=== PATIENT | female | born 1990 | race Caucasian/White ===

== ENCOUNTER 2024-08-07 14:13 | Emergency (ER) | payer OTHER, MEDICAID, SELFPAY ==
[2024-08-07 14:15] VITALS: BP 142/81; PULSE 92; RESP 16; TEMP 36.8; O2SAT 100; BMI 37.4
--- NOTE | 2024-08-07 14:36 | ED_ITS ---
HPI - Eye Problem <WYATT Jackson - Last Filed: 08/07/24 14:41> General Chief complaint: Eye Problems Stated complaint: Facial Swelling Time Seen by Provider: 08/07/24 14:22 Source: patient Mode of arrival: Ambulatory History of Present Illness HPI Narrative: 34-year-old female, daily smoker, presents to the emergency department with complaints of right upper eyelid swelling x1 day. Patient reports that she had a pimple on her right eyebrow that she popped last evening that became infected causing swelling of her upper eyelid. Patient denies any visual changes or eye discharge. 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 Related Data Previous Rx's Medication Instructions Recorded amoxicillin 875 mg-potassium 1 tab PO BID 7 days #14 tabs 08/07/24 clavulanate 125 mg tablet fluconazole 150 mg tablet 150 mg PO Q3D 2 doses #2 tabs 08/07/24 mupirocin 2 % topical ointment 1 applic topical BID #22 grams 08/07/24 sulfamethoxazole 800 1 tab PO BID 7 days #14 tabs 08/07/24 mg-trimethoprim 160 mg tablet (Bactrim DS) Allergies Allergy/AdvReac Type Severity Reaction Status Date / Time No Known Drug Allergies Allergy Verified 08/07/24 14:15 Review of Systems <WYATT Jackson - Last Filed: 08/07/24 14:41> Review of Systems Narrative: Narrative: See HPI. GENERAL: Denies chills, fatigue, fever, sweats. HEENT: Denies sinus pain, ear pain, sore throat, difficulty swallowing, dizziness. Endorses right upper eyelid swelling and discomfort. RESPIRATORY: Denies dyspnea, cough, wheezing, sputum. CARDIOVASCULAR: Denies chest pain, palpitations, edema. GASTROINTESTINAL: Denies nausea, vomiting, abdominal pain, diarrhea, constipation. MSK: Denies weakness, joint pain, or bony pain. SKIN: Denies rash, skin lesions, or pruritis. NEUROLOGIC: Denies weakness, dizziness, headache, numbness, confusion. Patient History <WYATT Jackson - Last Filed: 08/07/24 14:41> Social History Smoking Status: Current every day smoker Smoking Status: Current every day smoker tobacco type: vaping alcohol intake frequency: holidays/special occasions only Substance Use Type: methamphetamine Exam <WYATT Jackson - Last Filed: 08/07/24 14:41> Narrative Exam Narrative: Exam Narrative: GENERAL: This is a well-nourished, well-developed patient, in no acute distress. HEAD: Atraumatic. Normocephalic. EYES: Pupils equal round and reactive. Extraocular motions intact. No scleral icterus, injection or drainage. Positive swelling of right upper eyelid consistent with preseptal cellulitis. ENT: Nose without bleeding, purulent drainage. Airway patent. NECK: Trachea midline. No JVD or lymphadenopathy. Nontender. CARDIOVASCULAR: Regular rate and rhythm without murmurs, peripheral pulses intact, cap refill <2 sec. RESPIRATORY: Breath sounds equal and clear bilaterally. No wheezes, rales, or rhonchi. No cough. No increased respiratory effort. No accessory muscle use. MSK: Moves all extremities. Normal range of motion, no clubbing or edema. Neurovascularly intact. NEURO: A&O x 3. SKIN: Warm, dry, no rashes or lesions noted. Initial Vital Signs Initial Vital Signs: Vital Signs Temperature 98.2 F 08/07/24 14:15 Pulse Rate 92 H 08/07/24 14:15 Respiratory Rate 16 08/07/24 14:15 Blood Pressure 142/81 H 08/07/24 14:15 Pulse Oximetry 100 08/07/24 14:15 Oxygen Delivery Method Room Air 08/07/24 14:15 Reviewed <Dorothy Miller DO - Last Filed: 08/07/24 18:19> Initial Vital Signs Initial Vital Signs: Vital Signs Temperature 98.2 F 08/07/24 14:15 Pulse Rate 92 H 08/07/24 14:15 Respiratory Rate 16 08/07/24 14:15 Blood Pressure 142/81 H 08/07/24 14:15 Pulse Oximetry 100 08/07/24 14:15 Oxygen Delivery Method Room Air 08/07/24 14:15 Course <WYATT Jackson - Last Filed: 08/07/24 14:41> Vital Signs Vital signs: Vital Signs - 8 hr 08/07/24 14:15 Temperature 98.2 F Pulse Rate 92 H Respiratory Rate 16 Blood Pressure 142/81 H Pulse Oximetry 100 Oxygen Delivery Method Room Air <Dorothy Miller DO - Last Filed: 08/07/24 18:19> Vital Signs Vital signs: Vital Signs - 8 hr 08/07/24 14:15 Temperature 98.2 F Pulse Rate 92 H Respiratory Rate 16 Blood Pressure 142/81 H Pulse Oximetry 100 Oxygen Delivery Method Room Air MDM - Eye Problem <Chandler Sandoval WYATT - Last Filed: 08/07/24 14:41> Differential Diagnosis Differential diagnosis: Likely conjunctivitis and periorbital cellulitis MDM Narrative Medical decision making narrative: 34-year-old female with right upper eyelid swelling secondary to popping a p imple on her eyebrow. Clinical findings were suggestive of preseptal cellulitis. Per UpToDate, will treat with Bactrim and Augmentin. Per patient request, fluconazole prescribed for known yeast infections with antibiotics. Additionally, mupirocin ointment was prescribed for multiple lesions on her face. Discussed plan of care and return precautions with patient, verbalized understanding and was agreeable to course of action. Discharge Plan Departure Patient Disposition: Home Clinical Impression: Periorbital cellulitis Qualifiers: Laterality: right Qualified Code(s): L03.213 - Periorbital cellulitis Instructions: DI for Orbital Cellulitis Activity Restrictions/Additional Instructions: *You have been diagnosed with preseptal cellulitis. Treatment for this type of cellulitis requires 2 different antibiotics, Bactrim and Augmentin. Please take them both as prescribed. Per your request, I am placing a prescription for fluconazole for yeast infection. You should take 1 tablet immediately upon starting the antibiotics and the other in 3 days if symptoms start. Additionally, I am prescribing a mupirocin ointment that you may apply to the lesions on your face. *What to do: *Please continue to take your regular medications as directed. [ x] New medication prescriptions sent to your pharmacy: [[facility]] [ ] New medication written as a paper prescription [ ] No new medications given *Please follow up with your primary care provider in 2-3 days, call for an appointment. Let them know you were seen in the Emergency Department and that we ask that you be seen in follow up. We will electronically transmit a record of today's note if your PCP is in our system *If you do not have a primary care provider please contact the [facility] Resource line at [phone]. They will ask some questions about your medical history and help get you set up with a doctor in the community. ? Return to ER if you should have any new, worsening or concerning symptoms, such as worsening pain, severe headache, confusion, chest pain, difficulty breathing, fever greater than 101 F, shaking chills, persistent vomiting to the point that you cannot drink fluids, or other new or worsening symptoms. Prescriptions: New mupirocin 2 % ointment 1 applic topical BID Qty: 22 0RF fluconazole 150 mg tablet 150 mg PO Q3D Qty: 2 0RF sulfamethoxazole-trimethoprim [Bactrim DS] 800-160 mg tablet 1 tab PO BID 7 Days Qty: 14 0RF amoxicillin-pot clavulanate 875-125 mg tablet 1 tab PO BID 7 Days Qty: 14 0RF Stand Alone Forms: Patient Portal/API/Survey ED Sign-out <Dorothy Miller DO - Last Filed: 08/07/24 18:19> Cosign ED Attending Poornimaature Attestation: I was available for consultation.
== END 2024-08-07 14:40 | disposition home or self-care (01) ==
PROVIDERS: Emergency Provider Registered Nurse
DX: L03.213 Periorbital cellulitis (principal)
CPT/HCPCS: 99281; 99282

== ENCOUNTER → 2024-12-24 13:37 | Outpatient (CLI) | payer OTHER, SELFPAY ==
[2024-12-24 15:26] LABS: Urine Chlamydia NOT DETECTED; Urine N gonorrhoeae NOT DETECTED
== END ==
PROVIDERS: Visit Provider Registered Nurse
DX: N94.9 Unspecified condition associated with female genital organs and menstrual cycle (principal)
CPT/HCPCS: 87086; 87210; 87491; 87591

== ENCOUNTER 2024-12-24 15:20 | Emergency (ER) | payer OTHER, SELFPAY ==
[2024-12-24 15:25] VITALS: BP 164/94; PULSE 96; RESP 18; TEMP 36.8; O2SAT 100; BMI 34.9
--- NOTE | 2024-12-24 16:03 | ED_ITS ---
HPI - Recheck/Abnormal Lab/Rx <Rain Perla PA-C - Last Filed: 12/24/24 17:05> General Chief Complaint: Recheck/Abnormal Lab/Rx Stated Complaint: wants test for STD Time Seen by Provider: 12/24/24 15:35 Source: patient Mode of arrival: Ambulatory History of Present Illness HPI narrative: 34-year-old woman presents with concern for wanting STI testing. Patient states that she needs this done today as she has to go back to [facility]. She was already seen at the walk-in clinic earlier today with the same complaint but was unable to get her blood labs drawn today as it was a Thursday in the lab was maureen sed. She states that she has no specific symptoms other than she has some vaginal discharge itching and irritation consistent possibly with a yeast infection which she says she gets frequently. She states that her boyfriend is ?narcissistic? and she believes he may be sleeping with other people and she was concerned that she needs testing for STIs she was most concerned for HIV but wants to be tested for ?everything?. She states she does not currently have a PCP as she has been too busy to take care of herself. She endorses she does use methamphetamines. She also stated concern that her boyfriend has had a lot of medical issues lately told her he had cancer and then told her he did not have cancer she states that he had blood drawn and she believes he may have been tested for STIs including HIV but she does not know the results as he has not shared them with her. She denies any other complaints or concerns. Related Data Previous Rx's Medication Instructions Recorded fluconazole 150 mg tablet 150 mg PO Q3D 2 doses #2 tabs 08/07/24 mupirocin 2 % topical ointment 1 applic topical BID #22 grams 08/07/24 fluconazole 150 mg tablet 150 mg PO Q3D 2 doses #2 tabs 12/24/24 Allergies Allergy/AdvReac Type Severity Reaction Status Date / Time No Known Drug Allergies Allergy Verified 12/24/24 13:38 Review of Systems <Rain Perla PA-C - Last Filed: 12/24/24 17:05> Review of Systems Narrative: See HPI Patient History <Rain Perla PA-C - Last Filed: 12/24/24 17:05> Social History Smoking Status: Current every day smoker Smoking Status: Current every day smoker tobacco type: vaping alcohol intake frequency: holidays/special occasions only Exam <Rain Perla PA-C - Last Filed: 12/24/24 17:05> Narrative Exam Narrative: GENERAL: [34] year old patient appears stated age. Well-developed patient, in mild distress. HEAD: Atraumatic. Normocephalic. EYES: Pupils equal round and reactive. Extraocular motions intact. No scleral icterus. No injection or drainage. ENT: Nose without bleeding, purulent drainage. Airway patent. NECK: Trachea midline. Non tender RESPIRATORY: No increased work of breathing or respiratory distress EXTREMITIES: Moving all extremities, normal gait NEURO: AOx3. SKIN: Skin of hands and fingers is erythematous dry appearing consistent with methamphetamine use. No other rash or erythema of visible areas Initial Vital Signs Initial Vital Signs: Vital Signs Temperature 98.3 F 12/24/24 15:25 Pulse Rate 96 H 12/24/24 15:25 Respiratory Rate 18 12/24/24 15:25 Blood Pressure 164/94 H 12/24/24 15:25 Pulse Oximetry 100 12/24/24 15:25 Oxygen Delivery Method Room Air 12/24/24 15:25 <Nara Yuan DO - Last Filed: 12/25/24 15:37> Initial Vital Signs Initial Vital Signs: Vital Signs Temperature 98.3 F 12/24/24 15:25 Pulse Rate 96 H 12/24/24 15:25 Respiratory Rate 18 12/24/24 15:25 Blood Pressure 164/94 H 12/24/24 15:25 Pulse Oximetry 100 12/24/24 15:25 Oxygen Delivery Method Room Air 12/24/24 15:25 Course <Rain Perla PA-C - Last Filed: 12/24/24 17:05> Orders Ordered: ED Orders 12/24/24 16:38 HIV 1 & 2 Ab/Ag 4th Gen Combo Stat HSV 1/2 DNA PCR SWAB or BLOOD Stat Hep C Virus Ab w/Reflex Quant Stat RPR W Reflex to Titer Stat 12/24/24 16:55 Consult to OPERATING SYSTEMS PROGRAMMER - Cost Reduction Engineer Stat Vital Signs Vital signs: Vital Signs - 8 hr 12/24/24 15:25 Temperature 98.3 F Pulse Rate 96 H Respiratory Rate 18 Blood Pressure 164/94 H Pulse Oximetry 100 Oxygen Delivery Method Room Air <Nara Yuan DO - Last Filed: 12/25/24 15:37> Orders Ordered: ED Orders 12/24/24 16:38 HIV 1 & 2 Ab/Ag 4th Gen Combo Stat HSV 1/2 DNA PCR SWAB or BLOOD Stat Hep C Virus Ab w/Reflex Quant Stat RPR W Reflex to Titer Stat 12/24/24 16:55 Consult to OPERATING SYSTEMS PROGRAMMER - Cost Reduction Engineer Stat Vital Signs Vital signs: Vital Signs - 8 hr 12/24/24 15:25 Temperature 98.3 F Pulse Rate 96 H Respiratory Rate 18 Blood Pressure 164/94 H Pulse Oximetry 100 Oxygen Delivery Method Room Air MDM - Recheck/Abnormal Lab/Rx <Rain Perla PA-C - Last Filed: 12/24/24 17:05> Differential Diagnosis Differential diagnosis: Likely other (Vaginal yeast infection, encounter for screening for sexually transmitted diseases) Medical Records Attestation: I reviewed the patient's medical records. Lab Data Attestation: I reviewed the patient's lab results. Labs: Lab Results 12/24/24 Range/Units 16:38 Hepatitis C Antibody Negative (NEGATIVE) s/c HIV 1&2 Ab/P24 Ag 4thGn Negative (NEGATIVE) MDM Narrative Medical decision making narrative: This is a 34-year-old woman who admits to methamphetamine use presenting with concern for global screening for STIs. She was already seen at the walk-in clinic earlier today for the same at that time her urine was checked for gonorrh ea and chlamydia and she had a wet prep done. Wet prep returned showing yeast infection. Prescription for fluconazole sent in today. She endorses symptoms consistent with a vaginal yeast infection, which are frequent for her. Blood draw for lab tests for hep B hep C HSV 1 and 2 HIV 1 and 2 and syphilis obtained from the ER. Patient originally had plan to get these as ordered by walk-in clinic however checked into the ER when she was unable to do so today as lab was closed on Thursday afternoon. Discussed with her the possibility of talking to social work today which she was interested in but stated that she did not have time for this and elected to leave after labs were drawn. She was agreeable to getting a phone call from social work. A consult was placed and discussed the patient with social security benefits interviewer Amalia on shift in the ER today. She will contact the patient likely Thursday by phone. Return precautions provided, follow-up plan discussed, all questions answered. <Nara Yuan, DO - Last Filed: 12/25/24 15:37> Lab Data Labs: Lab Results 12/24/24 Range/Units 16:38 Hepatitis C Antibody Negative (NEGATIVE) s/c HIV 1&2 Ab/P24 Ag 4thGn Negative (NEGATIVE) Discharge Plan Departure Patient Disposition: Home Clinical Impression: Encounter for screening examination for sexually transmitted disease, Vaginal yeast infection Activity Restrictions/Additional Instructions: *You have been diagnosed with [screening testing for STIs] *What to do: *Please continue to take your regular medications as directed. [ ] New medication prescriptions sent to your pharmacy: [ ] [ ] New medication written as a paper prescription [ X] No new medications given *Please follow up with your primary care provider in 2-3 days, call for an appointment. Let them know you were seen in the Emergency Department and that we ask that you be seen in follow up. We will electronically transmit a record of today's note if your PCP is in our system. You came into the ER today wanting labs drawn so he can be tested for STIs. We have ordered testing for STIs including syphilis, HIV 1 and 2, HSV 1 and 2, hepatitis-B, hepatitis-C. You were already seen at the walk-in clinic earlier today and they did a wet prep which was positive for yeast and checked your urine for gonorrhea and chlamydia. Your blood labs will take time to result. He will get a phone call. I did send in a prescription for fluconazole given your positive yeast infection. Strongly encourage you to work on setting up a PCP, you can talk to the [facility] if you live on [place] and see if any of the providers there are taking new patients. I hope you feel better soon. *If you do not have a primary care provider please contact the [facility] Resource line at [phone]. They will ask some questions about your medical history and help get you set up with a doctor in the community. *Return to Emergency Department if you should have any new, worsening or concerning symptoms, such as [fever greater than 101 F, shaking chills, worsening pain, persistent vomiting or other bothersome symptoms] Prescriptions: No Action fluconazole 150 mg tablet 150 mg PO Q3D Qty: 2 0RF mupirocin 2 % ointment 1 applic topical BID Qty: 22 0RF fluconazole 150 mg tablet 150 mg PO Q3D Qty: 2 0RF Referrals: Miscellaneous,Doctor, MD [Primary Care Provider] - Stand Alone Forms: Patient Portal/API/Survey ED Sign-out <Nara Yuan DO - Last Filed: 12/25/24 15:37> Cosign ED Attending Cosignature Attestation: I was immediately available in the department for consultation.
[2024-12-24 17:49] LABS: HIV 1 & 2 Ab/Ag 4th Gen Combo NEGATIVE (NEGATIVE)
[2024-12-24 17:56] LABS: Hep C Virus Ab w/Reflex Quant NEGATIVE s/c (NEGATIVE)
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
[2024-12-27 04:36] LABS: RPR Screen Non Reactive (Non Reactive)
[2024-12-27 05:09] LABS: Hepatitis B Core IgM Negative (Negative); Hepatitis B Surf Ab Qualitativ Non Reactive (.)
[2024-12-28 08:09] LABS: HSV 1 DNA Negative (Negative); HSV 2 DNA Negative (Negative)
== END 2024-12-24 16:59 | disposition home or self-care (01) ==
PROVIDERS: Emergency Provider Student in an Organized Health Care Education/Training Program
DX: Z11.3 Encounter for screening for infections with a predominantly sexual mode of transmission (principal); B37.31 Acute candidiasis of vulva and vagina; N94.9 Unspecified condition associated with female genital organs and menstrual cycle
CPT/HCPCS: 36415; 86592; 86705; 86706; 86803; 87086; 87210; 87389; 87491; 87522; 87529; 87591; 99281; 99283

== ENCOUNTER 2025-01-19 07:05 | Emergency (ER) | payer OTHER, SELFPAY ==
[2025-01-19] VITALS (7 sets, daily range): BP systolic 135–167; BP diastolic 74–96; PULSE 46–97; RESP 18–22; TEMP 36.6; O2SAT 98–100; BMI 35.5
--- NOTE | 2025-01-19 07:47 | ED.ABDPAIN ---
HPI - Abdominal Pain General Chief Complaint: Urogenital-Female Stated Complaint: Lower Stomach pain Time Seen by Provider: 01/19/25 07:20 Source: patient Mode of arrival: Ambulatory History of Present Illness HPI narrative: Patient here for low abdominal pain with vaginal discharge. Symptoms started last night. However, patient seen here December 24 and had STD evaluation laboratory studies blood work and pelvic exam and pelvic swabs which were unremarkable results. LMP December 31. Denies but would like to be tested. No fever chills. No nausea or vomiting or diarrhea. No urinary complaints. Denies abdominal surgical history. Patient has not seen OBGYN services since last month for her complaint. She states she has not seen OBGYN service in [facility]. Related Data Previous Rx's Medication Instructions Recorded fluconazole 150 mg tablet 150 mg PO Q3D 2 doses #2 tabs 08/07/24 mupirocin 2 % topical ointment 1 applic topical BID #22 grams 08/07/24 fluconazole 150 mg tablet 150 mg PO Q3D 2 doses #2 tabs 12/24/24 clotrimazole 1 % vaginal cream 1 appful vaginal BEDTIME #45 grams 01/19/25 (Clotrimazole-7) fluconazole 150 mg tablet 150 mg PO Q3D 2 doses #2 tabs 01/19/25 Allergies Allergy/AdvReac Type Severity Reaction Status Date / Time No Known Drug Allergies Allergy Verified 12/24/24 13:38 Review of Systems Review of Systems Narrative: GENERAL: Negative chills, fatigue, malaise, fever, sweats. HEENT: Negative sinus pain, ear pain, sore throat RESPIRATORY: Negative dyspnea, cough CARDIOVASCULAR: Negative chest pain, palpitations GASTROINTESTINAL: Negative vomiting, nausea, positive abdominal pain : Negative dysuria, frequency, hematuria, positive vaginal discharge MUSCULOSKELETAL: Negative muscle or bony pain SKIN: Negative rash, skin lesions NEUROLOGIC: Negative weakness, numbness ROS Unobtainable: All systems reviewed & are unremarkable except as noted in HPI and below Patient History Social History Smoking Status: Current every day smoker Smoking Status: Current every day smoker tobacco type: cigarettes and vaping alcohol intake frequency: holidays/special occasions only Exam Narrative Exam Narrative: GENERAL: in no distress, not toxic not dyspneic HEAD: Normocephalic. EYES: Pupils equal round ENT: Mucous membranes moist. NECK: Trachea midline. CARDIOVASCULAR: Regular rate and rhythm RESPIRATORY: Clear to auscultation. Breath sounds equal bilaterally. No wheezes, rales, or rhonchi. GASTROINTESTINAL: Abdomen soft, non-tender no peritoneal signs. No suprapubic tenderness. No CVA tenderness. No guarding or rebound. No pain out of portion exam. EXTREMITIES: No gross deformities. BACK: No flank tenderness. NEURO: AOx4. Clear speech SKIN: Warm and dry PSYCH: Not anxious, is cooperative Initial Vital Signs Initial Vital Signs: Vital Signs Temperature 97.9 F 01/19/25 07:05 Pulse Rate 97 H 01/19/25 07:05 Respiratory Rate 18 01/19/25 07:05 Blood Pressure 167/96 H 01/19/25 07:05 Pulse Oximetry 100 01/19/25 07:05 Oxygen Delivery Method Room Air 01/19/25 07:05 Course Orders Ordered: Discontinued Medications Sodium Chloride (Normal Saline 0.9%) 500 mls @ 1,000 mls/hr IV BOLUS ONE Stop: 01/19/25 08:15 Last Infusion: 01/19/25 10:19 Dose: Infused Documented By: Infusion: 01/19/25 09:45 Dose: 1,000 mls/hr Documented By: Infusion: 01/19/25 09:08 Dose: 1,000 mls/hr Documented By: Infusion: 01/19/25 08:04 Dose: 0 mls/hr Documented By: Admin: 01/19/25 08:04 Dose: 1,000 mls/hr Documented By: RICHELLE Vital Signs Vital signs: Vital Signs - 8 hr 01/19/25 07:05 01/19/25 07:30 01/19/25 07:30 Temperature 97.9 F Pulse Rate 97 H 46 L Respiratory Rate 18 Blood Pressure 167/96 H 158/96 H Pulse Oximetry 100 99 Oxygen Delivery Method Room Air Room Air 01/19/25 08:52 01/19/25 09:00 01/19/25 09:01 Temperature Pulse Rate 87 86 Respiratory Rate 22 Blood Pressure Pulse Oximetry 98 100 Oxygen Delivery Method 01/19/25 09:01 01/19/25 09:30 01/19/25 09:30 Temperature Pulse Rate 84 Respiratory Rate Blood Pressure 135/77 138/74 Pulse Oximetry 100 Oxygen Delivery Method Room Air 01/19/25 10:00 01/19/25 10:00 Temperature Pulse Rate 83 Respiratory Rate Blood Pressure 142/77 H Pulse Oximetry 100 Oxygen Delivery Method Room Air MDM - Abdominal Pain Lab Data 01/19/25 08:44 01/19/25 08:44 Labs: Lab Results 01/19/25 01/19/25 Range/Units 07:15 08:44 WBC 13.6 H (4.5-11.0) X10^3/uL RBC 4.33 (4.0-5.2) X10^6/uL Hgb 12.5 (12.0-16.0) g/dL Hct 37.2 (36-46) % MCV 85.9 (80-100) fL MCH 28.8 (26-34) PG MCHC 33.5 (30-36) % RDW 12.6 (11.6-14.8) % Plt Count 272 (150-400) X10^3/uL Neut % (Auto) 74.2 (50-75) % Lymph % (Auto) 18.3 L (25-40) % [place] % (Auto) 6.5 (3-14) % Eos % (Auto) 0.7 L (2-4) % Baso % (Auto) 0.3 (0-2) % Neut # (Auto) 90657 H (2385-6219) /uL Lymph # (Auto) 2500 (5545-9681) /uL [place] # (Auto) 900 (0-900) /uL Eos # (Auto) 100 (0-450) /uL Baso # (Auto) 0 (0-100) /uL Sodium 136 L (137-145) mmol/L Potassium 4.0 (3.4-5.1) mmol/L Chloride 105 (98-107) mmol/L Carbon Dioxide 23 (22-32) mmol/L BUN 9 (7-17) mg/dL Creatinine 0.68 (0.52-1.04) mg/dL Estimated GFR > 60 (>60) mL/min BUN/Creatinine Ratio 13.2 (6-22) Glucose 95 (70-99) mg/dL Calcium 8.9 (8.4-10.2) mg/dL Total Bilirubin 0.9 (0.2-1.3) mg/dL AST 27 (14-36) IU/L ALT 23 (<35) IU/L Alkaline Phosphatase 73 (38-126) U/L Total Protein 7.6 (6.3-8.2) g/dL Albumin 4.4 (3.5-5.0) g/dL Globulin 3.2 (1.7-4.1) g/dL Albumin/Globulin Ratio 1.4 (1.0-2.8) Lipase 53 (23-300) U/L Ur Bilirubin Confirm Negative (Negative) Urine RBC 0-1/hpf (0-5/HPF) Urine WBC 1-5/hpf (0-5/HPF) Ur Squamous Epith Cells 5-10 /hpf H (0-5/HPF) Urine Bacteria Occasional (0-1) (None) Urine Mucus 2+ H (Negative) Ur Culture Indicated? Cult not indicated Vol Urine Centrifuged 10ml (spun) Point of care testing: Point of Care Testing Test Results Negative Urine Dip Bedside Urine Glucose Negative Bedside Urine Bilirubin + 1 Bedside Urine Ketone ++ 40 Urine Specific [place] 1.025 Bedside Urine Occult Blood - Negative Bedside Urine pH 6.0 Bedside Urine Protein +/- 15 Bedside Urine Urobilinogen - Negative Bedside Urine Nitrite - Negative Bedside Urine Leukocytes - Negative Esterase Imaging Data CT scan - abdomen/pelvis: Radiologist's Impression: [place] [address] CT Scan Report Signed Patient: Regina Haywood MR#: [id number] : 1990 Acct:[id number] Age/Sex: 34 / F Date of Service: 01/19/25 Loc: ED Accession Number: [id number] Procedure: CT abdomen pelvis w con Ordering Provider: Ben Peralta MD PROCEDURE: CT ABDOMEN PELVIS W CON INDICATIONS: IV contrast only/lower abdominal pain TECHNIQUE: After the administration of intravenous contrast, axial sections acquired from the lung bases to the pubic symphysis. Coronal and sagittal reformats were performed. For radiation dose reduction, the following was used: automated exposure control, adjustment of mA and/or kV according to patient size. COMPARISON: None. FINDINGS: Image quality: Diagnostic. Lower Chest: No significant findings. ABDOMEN: Liver: No solid mass. Gallbladder: No radiopaque gallstones or wall thickening. Biliary ducts: No biliary dilation. Pancreas: No ductal dilation. Spleen: Size is within normal limits. Adrenal Glands: No adrenal nodules. Kidneys and Ureters: No hydronephrosis. No solid mass. No complex renal cystic lesion which requires follow up. Stomach and Bowel: Normal colonic caliber, without significant wall thickening. Peritoneum: No abnormal intraperitoneal fluid. No free air. Ventral Wall: No significant ventral hernia. Abdominal Nodes: No retroperitoneal or mesenteric adenopathy by size criteria. Vessels: Aorta and inferior vena cava are normal in size. PELVIS: Pelvic Organs: Partially ruptured right ovarian cyst with a small amount of adjacent free fluid. Bladder: No bladder wall thickening, accounting for underdistention. Pelvic Nodes: No enlarged lymph nodes. Miscellaneous: No inguinal hernias are seen. Normal appendix found. Bones: No aggressive osseous abnormality. IMPRESSION: Partially ruptured right ovarian cyst with a small amount of adjacent free fluid within the right cul-de-sac. The cyst measures up to 3.7 cm. Normal appendix found. No urinary tract stone identified. Dictated by: Evangelist Fernandez M.D. on 01/19/2025 at 9:22 Approved by: Evangelist Fernandez M.D. on 01/19/2025 at 9:25 [facility] Narrative Medical decision making narrative: Patient here for low abdominal pain with vaginal discharge. Symptoms started last night. However, patient seen here December 24 and had STD evaluation laboratory studies blood work and pelvic exam and pelvic swabs which were unremarkable results. LMP December 31. Denies but would like to be tested. No fever chills. No nausea or vomiting or diarrhea. No urinary complaints. Denies abdominal surgical history. Patient has not seen OBGYN services since last month for her complaint. She states she has not seen OBGYN service in awhile. After history and exam, CBC CMP lipase urinalysis test CT abdomen pelvis normal saline. Pain is controlled at this time. No nausea. [facility] Medical records reviewed: December 24, 2024 visit here, laboratory results reviewed Differential considered: Includes but not limited to appendicitis colitis cystitis colitis vaginitis cervicitis Lab Test results independently reviewed as above. Pertinent findings: WBC 13.6 hemoglobin 12.5 urinalysis negative leukocytes negative nitrite negative sodium 136 potassium 4.0 Imaging studies independently reviewed: CT abdomen pelvis, partially ruptured right ovarian cyst Consultations: None indicated this time Re-evaluations: 9:46 a.m.. Reviewed results with patient. Pain is controlled. Return precautions reviewed. Likely source of pain today is the partially ruptured ovarian cyst. Referral for buffer chrome provided. Return precautions reviewed. Work note provided. She desires discharge home. Few yeast cells seen on pelvic exam last visit here. Will prescribe clotrimazole and Diflucan. Discussion: Appropriate for discharge home. Exam is reassuring. WBC not specific at this time. CT is reassuring. Likely source of pain as the partially ruptured ovarian cyst. [employer] referral provided. Return precautions reviewed. She desires discharge home. No pelvic exam at this time. Patient has had pelvic exam earlier this month. Unremarkable results. Diagnosis: Ovarian cyst Discharge Plan Departure Patient Disposition: Home Clinical Impression: Ovarian cyst Qualifiers: Laterality: unspecified laterality Qualified Code(s): N83.209 - Unspecified ovarian cyst, unspecified side Instructions: DI for Ovarian Cyst Activity Restrictions/Additional Instructions: Your exam and laboratory studies are reassuring. In his likely ovarian cyst causing your discomfort today. Please call provided OBGYN office today for follow up for re-evaluation within a week. Work note has been provided for you. Continue Tylenol or ibuprofen for pain. Prescriptions: New fluconazole 150 mg tablet 150 mg PO Q3D Qty: 2 0RF Rx Instructions: may repeat second dose 72 hrs after first dose if symptoms persist clotrimazole [Clotrimazole-7] 1 % cream 1 appful vaginal BEDTIME Qty: 45 0RF No Action fluconazole 150 mg tablet 150 mg PO Q3D Qty: 2 0RF mupirocin 2 % ointment 1 applic topical BID Qty: 22 0RF fluconazole 150 mg tablet 150 mg PO Q3D Qty: 2 0RF Referrals: Albino Wilkins MD [Physician] - Stand Alone Forms: Patient Portal/API/Survey, Work Release Note
[2025-01-19] MEDS: SODIUM CHLORIDE 0.9% 500 ML 1000 ML IV (08:04)
[2025-01-19 08:05] LABS: Ictotest Urine Negative (Negative)
[2025-01-19 08:19] LABS: Bacteria Urine Occasional (0-1); Culture Indicated Urine Cult Not Indicated; Mucus Urine 2+ (Negative); RBC Urine 0-1/HPF (0-5/HPF); Squamous Epithelial Cell Urine 5-10 /HPF (0-5/HPF); Urine Volume 10mL (spun); WBC Urine 1-5/HPF (0-5/HPF)
[2025-01-19 08:52] LABS: Add Manual Diff / Slide Review NO; Basophils Absolute Auto 0 /uL (0-100); Basophils Percent Auto 0.3 % (0-2); Eosinophils Absolute Auto 100 /uL (0-450); Eosinophils Percent Auto 0.7 % (2-4); Hematocrit 37.2 % (36-46); Hemoglobin 12.5 g/dL (12.0-16.0); Lymphocytes Absolute Auto 2500 /uL (1100-4500); Lymphocytes Percent Auto 18.3 % (25-40); Mean Corpuscular HGB Conc 33.5 % (30-36); Mean Corpuscular Hemoglobin 28.8 PG (26-34); Mean Corpuscular Volume 85.9 fL (80-100); Monocytes Absolute Auto 900 /uL (0-900); Monocytes Percent Auto 6.5 % (3-14); Neutrophils Absolute Auto 10100 /uL (1500-7000); Neutrophils Percent Auto 74.2 % (50-75); Platelet Count 272 X10^3/uL (150-400); Red Blood Cell Count 4.33 X10^6/uL (4.0-5.2); Red Cell Distribution Width 12.6 % (11.6-14.8); White Blood Cell Count 13.6 X10^3/uL (4.5-11.0)
[2025-01-19 09:03] LABS: Alanine Aminotransferase 23 IU/L (<35); Albumin 4.4 g/dL (3.5-5.0); Albumin Globulin Ratio 1.4 (1.0-2.8); Alkaline Phosphatase 73 U/L (38-126); Aspartate Aminotransferase 27 IU/L (14-36); BUN Creatinine Ratio 13.2 (6-22); Bilirubin Total 0.9 mg/dL (0.2-1.3); Blood Urea Nitrogen 9 mg/dL (7-17); Calcium 8.9 mg/dL (8.4-10.2); Carbon Dioxide 23 mmol/L (22-32); Chloride 105 mmol/L (98-107); Estimated Glomerular Filt Rate > 60 mL/min (>60); Globulin 3.2 g/dL (1.7-4.1); Glucose 95 mg/dL (70-99); HEMOLYSIS < 15 (0-50); Lipase 53 U/L (23-300); Sodium 136 mmol/L (137-145); Total Protein 7.6 g/dL (6.3-8.2)
== END 2025-01-19 10:29 | disposition home or self-care (01) ==
PROVIDERS: Emergency Provider Emergency Medicine
DX: N83.201 Unspecified ovarian cyst, right side (principal); N89.8 Other specified noninflammatory disorders of vagina
CPT/HCPCS: 36415; 74177; 80053; 81003; 81015; 81025; 83690; 85025; 96360; 99284; Q9967